=== PATIENT | female | born 1950 | race Caucasian/White ===

== ENCOUNTER 2018-07-09 10:58 | Inpatient (IN) | payer OTHER ==
[~2018-07-09] VITALS: Ht 154.9 cm; Wt 92.7 kg
[2018-07-09 11:40] VITALS: BP 111/43
[2018-07-09] MEDS ORDERED: ACETAMINOPHEN-1 EAC1 PO (11:50)
[2018-07-09] MEDS ORDERED: ATENOLOL 100MG100 MG PO (11:52)
[2018-07-09] MEDS ORDERED: ACCUNEB SO1.25 MG/1 INH (11:52)
[2018-07-09] MEDS ORDERED: VITAMIN D1000 UNI1 PO (11:53)
[2018-07-09] MEDS ORDERED: GLYBURIDE 2.52.5 MG PO (11:54)
[2018-07-09] MEDS ORDERED: DEPO-ESTRAD5 MG/1 ML IM (11:55)
[2018-07-09] MEDS ORDERED: PEPCID40 MG PO (11:55)
[2018-07-09] MEDS ORDERED: IRON325 PO (11:56)
[2018-07-09] MEDS ORDERED: LASIX 40 MG TAB40 M2 PO (11:56)
[2018-07-09] MEDS ORDERED: SYNTHROID75 MCG PO (11:57)
[2018-07-09] MEDS ORDERED: 24HR ALLERGY REL5 MG PO (11:57)
[2018-07-09] MEDS ORDERED: MIRAPEX1 MG PO (11:58)
[2018-07-09] MEDS ORDERED: ACCUPRIL40 MG PO (11:59)
[2018-07-09] MEDS ORDERED: SPIRONOLACTONE25 M1 PO (11:59)
[2018-07-09 12:02] LABS: HEMATOCRIT 23.8 % (37.0-47.0); HEMOGLOBIN 7.6 gm/dL (12.0-15.0); MCH 30.7 pg (26.0-34.0); MCV 95.9 fL (80.0-100.0); RBC 2.49 mil/uL (4.20-5.00); RDW 16.3 % (10.5-14.5); WBC 7.3 thou/uL (4.0-11.0)
[2018-07-09 12:08] LABS: CREATININE 1.2 mg/dL (0.6-1.0); POTASSIUM 3.9 mmol/L (3.5-5.1)
[2018-07-09 14:00] LABS: HEMOGLOBIN 7.2 gm/dL (12.0-15.0)
--- NOTE | 2018-07-09 18:05 | EKG ---
[address] [address] ELECTROCARDIOGRAM REPORT Name: MANDI MEADOWS Room #: 219-P [facility]#: [id number] ������������������ Admission: 07/09/18 ������������������ Attend Phys: Kg Rooney Discharge: ������������������ Date of : 46 Report #: [id number] ����������������������������������������������������������������� [id number] THIS REPORT FOR: //name// [facility] Test Date: 2018-07-09 Test Time: 11:26:54 Pat Name: MANDI MEADOWS Department: Room: Gender: F Erp Technical Lead: Nicole AGUSTIN : 1950 Requested By: Kg Rooney Order Number: [id number] MD: Lew Dwyer Measurements Intervals [place] Rate: 73 P: 49 IA: 150 QRS: 40 QRSD: 84 T: 47 QT: 388 QTc: 428 Interpretive Statements Sinus rhythm Low voltage, precordial leads No previous ECG available for comparison Electronically Signed On 07-09-2018 18:05:40 CDT by Lew Dwyer [email or web address] ��������������������������������������������� <ELECTRONICALLY SIGNED> ���������������������������������������� By: Lew Dwyer MD ��������������������������������������������� 07/09/18 1805 25 25 Lew Dwyer MD /SHREYA
[2018-07-09 19:11] VITALS: BP 101/43
--- NOTE | 2018-07-09 19:18 | NUR ---
ARRIVED ON CCU FROM [facility]. CATH NOT COMPLETED DUE TO LOW HGB. EGD PLANNED FOR AM AND CATH WILL BE LATER THIS WEEK. VERY PLESANT AND COOPERATIVE. DENIES PAIN. DONY R AC. SISTER AT BEDSIDE. INFORMED THAT SHE WILL BE NPO AFTER 2400
[2018-07-09 21:15] VITALS: BP 112/96; BP 83/63
[2018-07-10 00:38] VITALS: BP 113/63; BP 121/55; BP 125/59
[2018-07-10 04:10] VITALS: BP 124/48
[2018-07-10 05:37] LABS: HEMATOCRIT 29.9 % (37.0-47.0); MCHC 33.3 g/dL (28.0-37.0); MCV 93.1 fL (80.0-100.0); RBC 3.21 mil/uL (4.20-5.00); RDW 18.1 % (10.5-14.5); WBC 5.8 thou/uL (4.0-11.0)
[2018-07-10 05:57] LABS: ALBUMIN 3.3 g/dL (3.4-5.0); CALCIUM 8.8 mg/dL (8.5-10.1); TOTAL BILIRUBIN 0.8 mg/dL (<0.1-1.0)
[2018-07-10 05:58] LABS: % SATURATION 24 % (20-39); IRON 116 ug/dL (50-170); TIBC 487 ug/dL (250-450)
[2018-07-10 08:22] VITALS: BP 118/52
--- NOTE | 2018-07-10 11:14 | NUR ---
ASSUMED CARE AT 0700, SHIFT ASSESSMENT DONE, NPO SINCE LAST NIGHT FOR EGD TODAY. MEDS HELD THIS AM. VSS, DENIES ANY NAUSEA, VOMITING, PAIN. LEFT FOR THE EGD AT 0930 AM.
[2018-07-10] MEDS ORDERED: MAGOX 400400 MG (12:42)
[2018-07-10] MEDS ORDERED: QNASL10.6 GM (12:44)
[2018-07-10] MEDS ORDERED: TUMS PO (12:46)
--- NOTE | 2018-07-10 14:36 | NUR ---
RETURNED FROM EGD AT 1130, ON FULL LIQUID DIET. HOME MEDS ORDERED. REQUESTED FLONASE AND CLARITIN FOR SINUS CONGESTION, ORDER RECEIVED FROM PHYSICAN AND ADMINISTERED. VSS. WILL CONTINUE TO ASSESS AND ASSIST WITH ADLs NEEDED.
[2018-07-10 14:57] VITALS: BP 106/45
[2018-07-10 19:51] VITALS: BP 121/52
[2018-07-10 23:59] VITALS: BP 118/59
--- NOTE | 2018-07-11 03:31 | NUR ---
RECEIVED PT'S CARE AT 1900; PT. ON BED; AOX4; RELATIVE AT THE BED SIDE; DURING ASSESSMENT C/O LOWER BACK PAIN; SCHEDULE PAIN MEDICATION GIVEN; REFUSED IBUPROFEN; DURING PAIN RE-ASSESSMENT PT. STATE DECREASE PAIN; ST. ABLE TO AMBULATE WITHOUT AIDS; EDUCATED ABOUT FALL PREVENTION; ST. UNDERSTANDING; ST. FEELING CONSTIPATED; PRUNE JUICE GIVEN; PER LAB REPORT STOOL SAMPLE HAS NOT BEING COLLECTED; PT. INFORMED TO LET NURSE KNOW IF HAS BM DURING THE NIGHT; ST. UNDERSTANDING; ABLE TO REST THROUGH THE NIGHT WITH EYES CLOSE; ASSESSMENT CHARGED; FOLLOWING POC; WILL KEEP MONITORING; WILL PASS ON REPORT.
[2018-07-11 04:32] VITALS: BP 111/51
[2018-07-11 08:10] VITALS: BP 105/69
[2018-07-11] MEDS ORDERED: NITROGLYCERIN0.4 MG SUBLING (08:31)
[2018-07-11] MEDS ORDERED: IMDUR 30 MG TAB30 M1 PO (08:31)
[2018-07-11] MEDS ORDERED: PROTONIX40 M2 PO (08:31)
[2018-07-11 11:22] VITALS: BP 100/50
[2018-07-11 11:54] VITALS: BP 100/50
--- NOTE | 2018-07-11 12:41 | NUR ---
ASSUMED CARE AT 0700,S HIFT ASSESSMENT DONE, MEDS GIVEN, VSS. DENIES PAIN, [place], VOMITING. DISCHARGE ORDER RECEIVED, PAPER WORK GIVEN. PERIPHERAL IV WAS TAKEN OUT. WILL BE LEAVING WITH [facility].
--- NOTE | 2018-07-11 16:06 | PATH ---
[facility] [address] [place] [address] PATHOLOGY RPT PROCEDURE Name: MANDI MEADOWS MONTEZ Room #: 219-P DIS IN M.R.#: [id number] ������������������ Admission: 07/10/18 ������������������ Date of : 46 Discharge: 07/11/18 Report #: [id number] Path Case #: [id number] [facility] Accession Number: [id number] . 01 Material submitted: . stomach - BX ANTRUM R/O H. PYLORI . 01 Clinical history: . Pre-OP DX: Anemia, epigastric pain Post-OP DX: Gastric ulcers, esophagitis . 02 Diagnosis: Gastric mucosa, antrum rule out H. pylori, endoscopic biopsy: - Active gastritis with features of moderate reactive gastropathy. - Negative for intestinal metaplasia or atrophy. - Negative for Helicobacter pylori (properly controlled immunohistochemical stain performed). (IUV:meghna; 07/11/2018) MYKE/07/11/2018 . 02 Electronically signed: . Naye Hernandez MD, Pathologist NPI- [id number] . 01 Gross description: . Received in formalin labeled "[place], BX antrum, rule out H. pylori," are 2 segments of ledbetter soft tissue measuring 0.9 x 0.2 x 0.2 cm in aggregate dimensions and ranging from 0.3 to 0.6 cm in maximum dimension. The specimen is submitted entirely in cassette A1. (TSD; 07/10/2018) TOB/TOB . 02 Pathologist provided ICD-10: K29.70, K31.9 . 02 CPT . 878379, I42625 Specimen Comment: A courtesy copy of this report has been sent to Specimen Comment: [phone], , . Specimen Comment: Report sent to ,DR LIMA / DR BENNETT Performed at: [address] [id number] MD Faustino Banegas MD Phone: [phone] Performed at: [address] [id number] [address] [address] PATHOLOGY RPT PROCEDURE Name: MANDI MEADOWS MONTEZ Room #: 219-P DIS IN M.R.#: [id number] ������������������ Admission: 07/10/18 ������������������ Date of : 46 Discharge: 07/11/18 Report #: [id number] Path Case #: [id number] MD Naye Hernandez [place] Phone: [phone]
== END 2018-07-11 12:49 | disposition home or self-care (01) | DRG 384 ==
LOC: CATH 10:58 → 2N 17:22 → CATH 17:23 → 2N 17:23 → ENTRNSPT 07-11 12:30 → EDTRNSPTSTS 07-11 12:41 → 2N 07-11 12:49
PROVIDERS: Nurse Practitioner; ADMIT Internal Medicine
PROC: 0DB78ZX Excision of Stomach, Pylorus, Via Natural or Artificial Opening Endoscopic, Diagnostic (ICD-10-PCS; principal; 2018-07-10)
PROC: 30233N1 Transfusion of Nonautologous Red Blood Cells into Peripheral Vein, Percutaneous Approach (ICD-10-PCS; 2018-07-10)
DX: K25.9 Gastric ulcer, unspecified as acute or chronic, without hemorrhage or perforation (principal); K22.10 Ulcer of esophagus without bleeding; R07.9 Chest pain, unspecified; M19.90 Unspecified osteoarthritis, unspecified site; E03.9 Hypothyroidism, unspecified; I25.10 Atherosclerotic heart disease of native coronary artery without angina pectoris; D50.0 Iron deficiency anemia secondary to blood loss (chronic); K21.0 Gastro-esophageal reflux disease with esophagitis; K29.61 Other gastritis with bleeding; I11.0 Hypertensive heart disease with heart failure; Z91.040 Latex allergy status; Z91.09 Other allergy status, other than to drugs and biological substances
CPT/HCPCS: 10081; 62110; 62900; 70005

== ENCOUNTER → 2018-08-15 | Outpatient (CLI) | payer OTHER ==
[~2018-08-15] VITALS: Ht 154.9 cm; Wt 88.5 kg
[~2018-08-15] MED LIST: 24HR ALLERGY REL5 MG PO; ACCUNEB SO1.25 MG/1 INH; ACCUPRIL40 MG PO; ACETAMINOPHEN-1 EAC1 PO; ATENOLOL 100MG100 MG PO; DEPO-ESTRAD5 MG/1 ML IM; GLYBURIDE 2.52.5 MG PO; IMDUR 30 MG TAB30 M1 PO; IRON325 PO; LASIX 40 MG TAB40 M2 PO; MAGOX 400400 MG; MIRAPEX1 MG PO; NITROGLYCERIN0.4 MG SUBLING; PEPCID40 MG PO; PROTONIX40 M2 PO; QNASL10.6 GM; SPIRONOLACTONE25 M1 PO; SYNTHROID75 MCG PO; TUMS PO; VITAMIN D1000 UNI1 PO
[2018-08-15 10:13] VITALS: BP 122/48
[2018-08-15 10:31] LABS: HEMATOCRIT 36.1 % (37.0-47.0); HEMOGLOBIN 12.1 gm/dL (12.0-15.0); MCH 31.6 pg (26.0-34.0); MCHC 33.5 g/dL (28.0-37.0); MCV 94.6 fL (80.0-100.0); RBC 3.82 mil/uL (4.20-5.00); RDW 17.1 % (10.5-14.5); WBC 4.4 thou/uL (4.0-11.0)
[2018-08-15 10:40] LABS: CALCIUM 9.1 mg/dL (8.5-10.1)
--- NOTE | 2018-08-16 07:49 | EKG ---
[place] [address] [facility] [employer] [place] [address] ELECTROCARDIOGRAM REPORT Name: MANDI MEADOWS [facility] [id number] ������������������ Admission: 08/15/18 ������������������ Attend Phys: Kg Rooney Discharge: ������������������ Date of : 46 Report #: [id number] ����������������������������������������������������������������� [id number] THIS REPORT FOR: //name// [facility] Test Date: 2018-08-15 Test Time: 10:27:05 Pat Name: MANDI MEADOWS Department: Room: Gender: F Settlement Agent: JENNIE : 1950 Requested By: Kg Rooney Order Number: [id number] MD: Joe Rabago Measurements Intervals [place] Rate: 73 P: 27 MI: 156 QRS: 29 QRSD: 84 T: 31 QT: 384 QTc: 424 Interpretive Statements Sinus rhythm Normal tracing Compared to ECG 07/09/2018 11:26:54 No significant changes Electronically Signed On 08-16-2018 7:49:11 CDT by Joe Rabago [email or web address] ��������������������������������������������� <ELECTRONICALLY SIGNED> ���������������������������������������� By: Joe Rabago MD, [facility] ��������������������������������������������� 08/16/18 0749 D: [id number] Joe Rabago MD, FACC /EPI
--- NOTE | 2018-08-28 12:41 | CATHLAB ---
[facility] [address] [address] INVASIVE PROCEDURE REPORT Name: MANDI MEADOWS MONTEZ Room #: REG [facility].#: [id number] ������������� Admission: 08/15/18 ������������� Attend Phys: Kg Briceno Discharge: ��� ������������� ��� Date of : 46 Date of Service: 08/28/18 1240 �� Report #: [id number] �������� ��������������������������������������������[id number] THIS REPORT FOR: //name// APPROVED REPORT Study performed: 08/15/2018 12:00:14 Patient Details Patient Status: Out-Patient Room #: The patient is a 68 year-old female Event Personnel Kg Rooney Community Product Specialist, Kisha Zhang RN RN, Maddi Alvarenga RN RN, Vita Faustin Partnoy, Nancy RTR, PLANTING MATERIAL REMOVER Monitor Procedures Performed Art Access - R femoral artery* Left Heart Cath w/or w/o Coronaries [id number] [facility] [address] Initial Mod Sed Same Phys/QHP Gr5y 305548 Hemostasis with Manual pressure supervision of conscious sedation Indication Positive stress test Procedure Narrative The Right Groin^ was infiltrated with 1% Lidocaine subcutaneous anesthesia. A PINNACLE 4FR Sheath #[id number] sheath was inserted into the RFA^. Coronary angiography was performed using coronary diagnostic catheters. The right coronary system was accessed and visualized with a JR4 catheter. The left coronary system was accessed and visualized with a JL4 catheter. The left ventricle was accessed and visualized with a angled Pigtail catheter. Left ventricular/Aortic Valve gradient assessed via catheter pullback. Hemostasis was obtained with manual pressure following sheath removal without any complications. The patient tolerated the procedure well and there were no complications associated with the procedure. There was no hematoma. Intraoperative Conscious Sedation Sedation start time: 12:05 Case end Time: 12:40 Versed 3 mg Fluoro Time: 2.[address] [facility] [place] [address] INVASIVE PROCEDURE REPORT Name: MANDI MEADOWS MONTEZ Room #: REG [facility].#: [id number] ������������� Admission: 08/15/18 ������������� Attend Phys: Kg Briceno Discharge: ��� ������������� ��� Date of : 46 Date of Service: 08/28/18 1240 �� Report #: [id number] �������� ��������������������������������������������[id number] Dose: DAP 5317.00 cGycm2 912 mGy Contrast Type and Amount: Omnipaque 50 ml Coronary Angiography The patient's coronary anatomy is right dominant. Diagnostic Cath Left Main Normal origin and caliber bifurcates left anterior descending left circumflex free of high-grade disease there is evidence of distal calcification on fluoroscopy but no concomitant high-grade lesions present LAD Small-caliber one-vessel which has a proximal narrowing of approximately 50% at the most at the origin of the first diagonal. The first diagonal has a 50% ostial lesion also both of these vessels are small in caliber. The proper then continues in the anterior interventricular sulcus terminating well above the apex with luminal irregularities noted throughout its course. Diagonal 1 Small-caliber vessel which has a proximal 50% lesion and has a bifurcation in its proximal third. Free of high-grade disease but presence of luminal irregularities are noted Circumflex Small caliber nondominant vessel which gives rise to a high lateral marginal branch. Luminal irregularities are noted although no high-grade lesions are present Right Coronary Large-caliber vessel of normal origin proceeds in the AV groove is irregularities of less than 30%. Gives rise to a small RV marginal branch and continues to the crux of the heart were moderate to large caliber posterior descending artery originates. The distal right system then extends to the lateral aspect of the left ventricle supplying the distal lateral wall of the left ventricle. No high-grade lesions are noted only luminal irregularity irregularities R PDA Moderate caliber vessel coursing in the posterior interventricular sulcus. [place] bifurcates into 2 smaller vessels both of which are free of high-grade disease Left Ventriculography Left Ventriculography was not performed. Hemodynamics The aortic pressure is 118/59 mmHg with a mean of 85 mmHg. The left ventricular pressure is 123/17 mmHg with a mean of mmHg. The left ventricular end diastolic pressure is 35 mmHg. Conclusion 1. Minimal coronary artery disease without 2. Normal hemodynamics [facility] [address] [place] [address] INVASIVE PROCEDURE REPORT Name: MANDI MEADOWS MONTEZ Room #: REG [facility]#: [id number] ������������� Admission: 08/15/18 ������������� Attend Phys: Kg Briceno Discharge: ��� ������������� ��� Date of : 46 Date of Service: 08/28/18 1240 �� Report #: [id number] �������� ��������������������������������������������[id number] Recommendations Cardiac Risk Reduction Program Medical Therapy Weight Loss Reduction Program ��������������������������������������������� <ELECTRONICALLY SIGNED> ���������������������������������������� By: Kg Rooney MD ��������������������������������������������� 08/28/18 1240 1240 1240 Kg Rooney MD /INF
== END | disposition home or self-care (01) ==
LOC: CATH 09:46
PROVIDERS: Internal Medicine
DX: I25.10 Atherosclerotic heart disease of native coronary artery without angina pectoris (principal); I10 Essential (primary) hypertension; E03.9 Hypothyroidism, unspecified; E78.5 Hyperlipidemia, unspecified; M19.90 Unspecified osteoarthritis, unspecified site; K21.9 Gastro-esophageal reflux disease without esophagitis; Z90.710 Acquired absence of both cervix and uterus; Z98.890 Other specified postprocedural states; Z82.49 Family history of ischemic heart disease and other diseases of the circulatory system; Z91.040 Latex allergy status; Z88.8 Allergy status to other drugs, medicaments and biological substances; Z79.899 Other long term (current) drug therapy

== ENCOUNTER → 2018-11-06 | Outpatient (CLI) | payer OTHER ==
[~2018-11-06] VITALS: Ht 152.4 cm; Wt 88.5 kg
[2018-11-06 12:47] VITALS: BP 130/73
== END | disposition home or self-care (01) ==
LOC: CATH 11:24
DX: I87.1 Compression of vein (principal); I87.303 Chronic venous hypertension (idiopathic) without complications of bilateral lower extremity; R60.0 Localized edema; I10 Essential (primary) hypertension; I25.10 Atherosclerotic heart disease of native coronary artery without angina pectoris; K21.9 Gastro-esophageal reflux disease without esophagitis; E66.09 Other obesity due to excess calories; I73.9 Peripheral vascular disease, unspecified; M19.90 Unspecified osteoarthritis, unspecified site; E03.9 Hypothyroidism, unspecified; Z79.899 Other long term (current) drug therapy; Z90.710 Acquired absence of both cervix and uterus; Z82.49 Family history of ischemic heart disease and other diseases of the circulatory system; Z98.890 Other specified postprocedural states; Z91.040 Latex allergy status; Z88.8 Allergy status to other drugs, medicaments and biological substances

== ENCOUNTER 2019-02-08 16:20 | Emergency (ER) | payer OTHER ==
[~2019-02-08] VITALS: Ht 152.4 cm; Wt 79.4 kg
[2019-02-08 17:12] LABS: URINE BILIRUBIN NEGATIVE (Negative); URINE BLOOD NEGATIVE (Negative); URINE CLARITY CLEAR; URINE COLOR YELLOW; URINE GLUCOSE-RANDOM* NEGATIVE (Negative); URINE KETONES NEGATIVE (Negative); URINE LEUKOCYTES-REFLEX NEGATIVE (Negative); URINE NITRITE-REFLEX NEGATIVE (Negative); URINE PROTEIN (DIPSTICK) NEGATIVE (Negative); URINE UROBILINOGEN 0.2 E.U./dl (0.2-1.0)
[2019-02-08 17:23] LABS: HEMATOCRIT 41.1 % (37.0-47.0); HEMOGLOBIN 13.9 gm/dL (12.0-15.0); MCHC 33.9 g/dL (28.0-37.0); MCV 97.6 fL (80.0-100.0); PLATELET COUNT 204 thou/uL (150-400); RBC 4.21 mil/uL (4.20-5.00); RDW 14.3 % (10.5-14.5); WBC 4.3 thou/uL (4.0-11.0)
[2019-02-08 17:33] LABS: CALCIUM 9.5 mg/dL (8.5-10.1); CREATININE 1.1 mg/dL (0.6-1.0); POTASSIUM 3.9 mmol/L (3.5-5.1)
[2019-02-08 17:37] LABS: APTT 25.1 Seconds (24.5-32.8); INR 1.1
[2019-02-08 17:40] LABS: ALBUMIN 3.2 g/dL (3.4-5.0); TOTAL BILIRUBIN 0.7 mg/dL (<0.1-1.0); TOTAL PROTEIN 7.3 g/dL (6.4-8.2)
[2019-02-08] MEDS ORDERED: ANUSOL-HC25 MG RECTAL (17:46)
[2019-02-08] MEDS ORDERED: PROTONIX40 MG PO (17:46)
[2019-02-08 18:06] LABS: ABSOLUTE NEUTROPHILS 2.1 thou/uL (1.4-8.2)
[2019-02-08 18:07] LABS: ANISOCYTOSIS 1+
[2019-02-08 18:20] VITALS: BP 99/54
== END 2019-02-08 18:21 | disposition home or self-care (01) ==
LOC: ER 16:20
PROVIDERS: Emergency Medicine
DX: K27.9 Peptic ulcer, site unspecified, unspecified as acute or chronic, without hemorrhage or perforation (principal); K64.4 Residual hemorrhoidal skin tags; K62.5 Hemorrhage of anus and rectum; K21.9 Gastro-esophageal reflux disease without esophagitis; I10 Essential (primary) hypertension; E03.9 Hypothyroidism, unspecified; G25.81 Restless legs syndrome; E78.5 Hyperlipidemia, unspecified; Z91.040 Latex allergy status; Z88.8 Allergy status to other drugs, medicaments and biological substances; Z79.899 Other long term (current) drug therapy; Z90.710 Acquired absence of both cervix and uterus